=== PATIENT | female | born 1970 | race Caucasian/White ===

== ENCOUNTER → 2020-01-14 | Outpatient (CLI) | payer BC ==
[2019-12-07 15:00] VITALS: BP 106/49
[~2020-01-14] MED LIST: NAPR-677 PO; SOLI5TAB2 PO
--- NOTE | 2020-01-14 09:26 | KCIC ---
Three-view thoracic spine series Clinical indications: Compression fracture after fall. Follow-up study. COMPARISON: CT study dated December 05, 2019. FINDINGS: Again seen are compression fractures of T4 and T5. T4 compression fracture is stable. There does appear to be an increase in anterior wedging of the T5 compression fracture. No obvious posterior protrusion of bony elements into the anterior aspect of the spinal canal is seen otherwise. 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 No new compression fracture is seen. No lytic process or discitis is seen. IMPRESSION: Stable compression fracture T4. Mild increase in wedge compression fracture of the anterior aspect of the T5 vertebral body since the previous study. No new abnormality. Electronically signed by: Chavez Saleh MD (01/14/2020 9:23 AM) [facility]
== END | disposition home or self-care (01) ==
LOC: KCIC 08:09
PROVIDERS: ATTEND Neurological Surgery
DX: S22.050D Wedge compression fracture of T5-T6 vertebra, subsequent encounter for fracture with routine healing (principal); S22.048D Other fracture of fourth thoracic vertebra, subsequent encounter for fracture with routine healing; W19.XXXD Unspecified fall, subsequent encounter; D18.09 Hemangioma of other sites
CPT/HCPCS: 72072